=== PATIENT | female | born 1975 | race Caucasian/White ===

== ENCOUNTER → 2022-09-12 | Day surgery (SDC) | payer BC | END | disposition home or self-care (01) | LOC: BICULT 12:40 | PROVIDERS: ATTEND Obstetrics & Gynecology | PROC: 0H9T3ZX Drainage of Right Breast, Percutaneous Approach, Diagnostic (ICD-10-PCS; principal; 2022-09-12) | DX: C50.811 Malignant neoplasm of overlapping sites of right female breast (principal); Z17.0 Estrogen receptor positive status [ER+] | CPT/HCPCS: 19083; 88305; 88342 ==

== ENCOUNTER 2022-11-25 07:26 | Day surgery (SDC) | payer BC ==
[2022-11-20 14:03] VITALS: BMI 30.4
[2022-11-25] MEDS ORDERED: Ketorolac Tromethamine 30 MG/ML VIAL ONE (09:17)
[2022-11-25] MEDS ORDERED: Acetaminophen 500 MG TAB ONE (09:17)
[2022-11-25] MEDS ORDERED: EPINEPHrine 1 MG/ML AMP ONE (10:52)
[2022-11-25] MEDS ORDERED: Isosulfan Blue 50 MG/5 ML VIAL ONE (10:52)
[2022-11-25] MEDS ORDERED: Bupivacaine 0.25% HCL 30 ML VIAL ONE (10:52)
[2022-11-25] MEDS ORDERED: Lidocaine 1% (PF) 30 ML VIAL ONE (10:52)
[2022-11-25] MEDS ORDERED: fentaNYL PF 100 MCG/2 ML SYRINGE ONE (13:12)
[2022-11-25] MEDS ORDERED: Sodium Chloride 0.9% 100 ML ONE (13:17)
[2022-11-25] MEDS ORDERED: CEFAZOLIN 2 GM VIAL ONE (13:17)
[2022-11-25] MEDS ORDERED: Dexamethasone 20 MG/5 ML VIAL ONE (13:28)
[2022-11-25] MEDS ORDERED: Ondansetron PF 4 MG/2 ML Vial ONE (13:28)
[2022-11-25] MEDS ORDERED: PROPOFOL 200 MG/20 ML VIAL ONE (13:28)
[2022-11-25] MEDS ORDERED: Lidocaine 1% PF 5 ML VIAL ONE (13:28)
[2022-11-25] MEDS ORDERED: ePHEDrine Sulfate 50 MG/10 ML VIAL ONE (13:28)
[2022-11-25] MEDS ORDERED: Midazolam HCl 2 mg/2 ml Vial ONE (13:37)
[2022-11-25] MEDS ORDERED: Meperidine HCl/PF 25 MG/ML VIAL ONE (15:23)
[2022-11-25] MEDS ORDERED: fentaNYL 50 mcg/mL 1 mL Vial ONE (15:28)
[2022-11-25] MEDS ORDERED: HYDROcodone/Acetaminophen 5/325 mg Tablet ONE (16:32)
== END 2022-11-25 16:57 | disposition home or self-care (01) ==
LOC: SDC 07:26
PROVIDERS: ATTEND Specialist
PROC: 05H533Z Insertion of Infusion Device into Right Subclavian Vein, Percutaneous Approach (ICD-10-PCS; principal; 2022-11-25)
PROC: 0HBT0ZZ Excision of Right Breast, Open Approach (ICD-10-PCS; principal; 2022-11-25)
DX: C50.811 Malignant neoplasm of overlapping sites of right female breast (principal); Z17.0 Estrogen receptor positive status [ER+]; Z88.8 Allergy status to other drugs, medicaments and biological substances
CPT/HCPCS: 71045; 76098; 78195; 88307; 88342; A9541; C1713; C1788; J0171; J1100; J1642; J1885; J2001; J2175; J2250; J2405; J2704; J3010; J3490; Q9968; S0020

== ENCOUNTER 2022-12-29 12:52 | Outpatient (CLI) | payer BC | END 2022-12-29 12:53 | disposition home or self-care (01) | LOC: ULT 12:52 | PROVIDERS: ATTEND Internal Medicine Hematology & Oncology | DX: C50.211 Malignant neoplasm of upper-inner quadrant of right female breast (principal) | CPT/HCPCS: 93306 ==

== ENCOUNTER 2023-10-15 13:41 | Outpatient (CLI) | payer BC | END 2023-10-15 13:42 | disposition home or self-care (01) | LOC: ULT 13:41 | PROVIDERS: ATTEND Internal Medicine Hematology & Oncology | DX: Z51.11 Encounter for antineoplastic chemotherapy (principal); C50.211 Malignant neoplasm of upper-inner quadrant of right female breast; Z79.899 Other long term (current) drug therapy | CPT/HCPCS: 93306 ==

== ENCOUNTER 2023-11-27 13:21 | Outpatient (CLI) | payer BC | END 2023-11-27 13:22 | disposition home or self-care (01) | LOC: BICMAMMO 13:21 | PROVIDERS: ATTEND Specialist | DX: Z08 Encounter for follow-up examination after completed treatment for malignant neoplasm (principal); Z85.3 Personal history of malignant neoplasm of breast | CPT/HCPCS: 77066; G0279 ==